=== PATIENT | female | born 1960 | race Caucasian/White ===

== ENCOUNTER → 2018-01-24 | Outpatient (CLI) | payer OTHER ==
[~2018-01-24] VITALS: Ht 157.5 cm; Wt 125.6 kg
[~2018-01-24] MED LIST: CATHETER FLUSH 10 ML SYR IV PRN; REGADENOSON 0.4 MG/5 ML SYR (LEXISCAN) IV ONE
[2018-01-24 09:05] VITALS: BP 158/86
[2018-01-24 09:27] VITALS: BP 157/105
[2018-01-24 09:30] VITALS: BP 156/101
--- NOTE | 2018-01-24 22:46 | STRESS TEST ---
DATE OF SERVICE: 01/24/2018 RESTING AND POST REGADENOSON TECHNETIUM 99M TETROFOSMIN SPECT CT IMAGING ORDERING PHYSICIAN: Leah Augustine APRN. PRIMARY PHYSICIAN: [facility]. CLINICAL DIAGNOSES: Chest discomfort, palpitations. Baseline images were carried out after injection of 10.25 mCi of technetium-99m Tetrofosmin. This was followed by 0.4 mg regadenoson and 29.9 mCi of technetium-99m Tetrofosmin for stress imaging. The electrocardiogram showed sinus rhythm at baseline. It did not change significantly with the regadenoson infusion. Review of images at rest and following stress does not indicate any significant perfusion defects consistent with myocardial ischemia or infarction. Gated images showed normal global left ventricular systolic function with normal regional wall motion. Left ventricular ejection fraction is calculated to be 77%. Left ventricular end diastolic volume is 52 mL. TID is absent (0.99). CONCLUSIONS: 1. No evidence of any significant myocardial ischemia or infarction on this study. 2. Normal regional wall motion. 3. Normal global left ventricular systolic function with a calculated ejection fraction of 77%. Job ID: [id number] DocumentID: [id number] Dictated Date: 01/24/2018 20:59:51 Shuttle Driver Date: 01/24/2018 22:46:01 Dictated By: MARJORIE RAYGOZA MD, MA, FACP, FACC,
== END ==
LOC: CARD 06:56
PROVIDERS: ATTEND Nurse Practitioner Family
DX: R07.89 Other chest pain (principal); R00.2 Palpitations; R06.09 Other forms of dyspnea; I10 Essential (primary) hypertension
CPT/HCPCS: 78452; 93017; 93225; 93226; 93306

== ENCOUNTER 2018-02-10 08:30 | Outpatient (CLI) | payer MEDICARE, OTHER | END 2018-02-10 09:00 | disposition home or self-care (01) | LOC: SLEEP 08:30 | PROVIDERS: ATTEND Nurse Practitioner Family | DX: G47.10 Hypersomnia, unspecified (principal) ==